=== PATIENT | male | born 1960 | race Caucasian/White ===

== ENCOUNTER 2024-04-26 16:41 | Outpatient (OUT) | payer OTHER, SELFPAY ==
[2024-04-26 17:07] LABS: Hematocrit 41.4 % (42.0-54.0); Hemoglobin 13.6 g/dL (14.0-18.0); Mean Corpuscular HGB Conc 32.9 g/dL (29.9-35.2); Mean Corpuscular Hemoglobin 29.9 pg (25.9-34.0); Mean Platelet Volume 8.8 fL (9.5-13.5); Platelet Count 207 10^3/uL (150-450); Red Blood Count 4.55 10^6/uL (4.70-6.10); Red Cell Distribution Width 14.4 % (11.0-15.0); White Blood Count 25.8 10^3/uL (4.0-11.0)
[2024-04-26 17:21] LABS: Lymphocytes Absolute Manual 20.64 10^3/uL (1.20-3.80); Monocytes Absolute Manual 0.77 10^3/uL (0.30-0.80); Segmented Neut Absolute Manual 4.38 10^3/uL (1.4-6.5); Smudge Cells SEEN
== END 2024-04-26 16:42 | disposition home or self-care (01) ==
PROVIDERS: PCP Family Medicine; Visit Provider Internal Medicine
DX: J45.40 Moderate persistent asthma, uncomplicated (principal); D72.820 Lymphocytosis (symptomatic)
CPT/HCPCS: 36415; 85007; 85027; 99999

== ENCOUNTER 2024-05-26 12:44 | Outpatient (OUT) | payer OTHER, SELFPAY ==
--- NOTE | 2024-05-26 13:00 | RT_ITS ---
The [facility] Test Date: 2024-05-26 Pat Name: LOUIS GRUBER Department: Room: - Gender: Male Student Development Dean: Chelle Brito RRT : 1960 Requested By: Westley Owens Order Number: [id number] Reading MD: Westley Owens Interpretive Statements Pulmonary function testing was completed according to ATS criteria. Findings were considered accurate and reproducible. Both pre- and post-bronchodilator values utilized for spirometry. Spirometry (based on pre-bronchodilator values): -FEV1/FVC: Reduced @ 69% -FEV1: Low normal @ 80% -FVC: Normal @ 88% -DZF97-09%: Reduced @ 63% -There is a positive bronchodilator resposne in [id number]%, but diagnostic and clinical significance is unclear. Lung volumes by plethysmography (based on pre-bronchodilator values): -RV: Increased @ 170% -TLC: Normal @ 116% Diffusion capacity: -DLCO: Normal @ 86% when corrected for Hb 13.6g/dL Flow-volume loop: -Mild obstructive pattern Prior testing from 09/04/2020: -FEV1/FVC: 68% -FEV1: 77% -FVC: 87% -RV: 124% -T% -DLCO: 92% Impressions: -Mild obstructive pattern in spirometry with suggestion of bronchoreversibility. An elevated RV suggests air trapping. The diffusion capacity is normal. Overall study suggestive of asthma. When compared to prior testing, there is negligible change in spirometry, with an increase in RV. Clinical correlation required. Electronically Signed On 05-31-2024 9:29:22 EDT by Westley Owens
[2024-05-26] MEDS: ALBUTEROL SULFATE 2.5 MG/3 ML VIAL NEB IH (13:33)
== END 2024-05-26 12:45 | disposition home or self-care (01) ==
LOC: CARD 12:44
PROVIDERS: PCP Family Medicine; Visit Provider Internal Medicine
DX: J45.40 Moderate persistent asthma, uncomplicated (principal)
CPT/HCPCS: 94060; 94726; 94729

== ENCOUNTER 2024-12-01 08:40 | Outpatient (OUT) | payer OTHER, SELFPAY ==
--- NOTE | 2024-12-01 08:58 | CT_ITS ---
The [address] [address] Patient Name: LOUIS GRUBER MRN: [id number] date: 1960 Sex: M Assigned Patient Location: LAB Current Patient Location: LAB Accession/Order Number: [id number] Exam Date: 12/01/2024 09:52 Report Date: 12/01/2024 10:15 At the request of: HONEY MARIA DO Procedure: CT chest w con CT CHEST WITH INTRAVENOUS CONTRAST: CLINICAL HISTORY: Chronic cough. Follow-up hilar lymphadenopathy and pulmonary nodularity COMPARISON: 09/07/2024 TECHNIQUE: Spiral images were obtained through the chest following intravenous administration of 100 mL of Omnipaque 300. Images were reviewed using both narrow and wide window settings. This CT exam was performed using one or more following dose reduction techniques: Automated exposure control, adjustment of the mA and/or kV according to patient size, or use of iterative reconstruction technique. FINDINGS: The heart is not enlarged. There is no pericardial effusion. No aortic aneurysm or dissection is seen. There is no mediastinal or hilar lymphadenopathy. A tiny hiatal hernia is seen. Similar small mediastinal and hilar lymph nodes are present. There are also mildly prominent axillary lymph nodes bilaterally that were also present at the time of the prior and have not significantly changed. There is subtle dextroscoliotic curvature and mild degenerative changes at the spine. Minor right upper lobe scarring is again noted. There is developing subsegmental atelectasis at the lower lungs bilaterally. No additional consolidation, pleural effusion or pneumothorax is present. There are 3 small nodules measuring up to 7 mm in size within the right middle lobe laterally which have not significantly changed. No new nodularity seen. Limited cuts through the upper abdomen show the hepatic cyst. CT/CT chest w con IMPRESSION: STABLE RIGHT MIDDLE LOBE NODULARITY AND RIGHT UPPER LOBE SCARRING. DEVELOPING BIBASILAR ATELECTASIS. SIMILAR LYMPH NODES, LARGEST AT THE AXILLA. Impression dictated by: Glenny Kirk M.D.12/01/2024 10:15 AM Dictation Location: [place] [address] Electronically authenticated by: [id number] Y Date: 12/01/2024 10:15
[2024-12-01 09:13] LABS: Estimated GFR (African America >60 (>=60 mL/min/1.73m^2); Estimated GFR (Non-African Ame >60 (>=60 mL/min/1.73m^2)
== END 2024-12-01 08:41 | disposition home or self-care (01) ==
LOC: LAB 08:40
PROVIDERS: PCP Family Medicine; Visit Provider Internal Medicine
DX: R59.0 Localized enlarged lymph nodes (principal); R91.8 Other nonspecific abnormal finding of lung field
CPT/HCPCS: 36415; 71260; 82565; Q9967